=== PATIENT | female | born 1945 | race American Indian/Alaskan Native ===

== ENCOUNTER 2021-12-07 08:35 | Day surgery (SDC) | payer MEDICARE ==
[~2021-12-07 08:35] MED LIST: ceFAZolin/Water 2 GM/20 ML 2 GM/20 ML SYRINGE IV NR
[2021-12-07] MEDS ORDERED: SODIUM CHLORIDE 0.9% 1000 ML 1,000 ML ONE (08:40)
[2021-12-07 09:41] LABS: Hematocrit 27.1 % (30.3-42.9); Hemoglobin 8.5 gm/dl (10.1-14.3); Mean Corpuscular HGB Conc 31 % (30-34); Mean Corpuscular Volume 78 fl (79-97); Platelet Count 184 K/mm3 (140-440); Red Blood Count 3.48 M/mm3 (3.65-5.03); Red Cell Distribution Width 17.1 % (13.2-15.2)
[2021-12-07 09:56] LABS: Calcium 8.9 mg/dL (8.4-10.2)
[2021-12-07] MEDS ORDERED: SODIUM CHLORIDE P/F VIAL 10 ML 10 ML ONE (09:58)
[2021-12-07] MEDS ORDERED: HEPARIN 10,000 UNITS/10 ML VIAL ONE (09:58)
[2021-12-07] MEDS ORDERED: SODIUM CHLORIDE 0.9% 250ML 250 ML ONE (09:59)
[2021-12-07] MEDS ORDERED: BUPIVACAINE/PF (0.5%) 5 MG/1 ML 30 ML VIAL INFILTRATI ONE (09:59)
[2021-12-07] MEDS ORDERED: SODIUM CHLORIDE 0.9% 500 ML 500 ML ONE (09:59)
[2021-12-07] MEDS ORDERED: rifAMPin 600 MG VIAL ONE (09:59)
[2021-12-07] MEDS ORDERED: LIDOCAINE MPF (2%) 20 MG/1 ML VIAL 5 ML ONE (10:02)
[2021-12-07] MEDS ORDERED: propofoL 200 MG/20 ML VIAL IV ONE (10:02)
--- NOTE | 2021-12-07 10:18 | Anesthesia Day of Surgery ---
Anesthesia Day of Surgery - Day of Surgery Patient Examined: Yes Patient H&P Reviewed: Yes Patient is NPO: Yes
--- NOTE | 2021-12-07 10:20 | Anesthesia Consultation ---
Anesthesia Consult and Med Hx Date of service: 12/07/21 - Airway Anesthetic Teeth Evaluation: Poor ROM Head & Neck: Adequate Mental/Hyoid Distance: Adequate Mallampati Class: Class II Intubation Access Assessment: Good - Pulmonary Exam CTA: Yes - Cardiac Exam Anesthetic Concerns: irregular - Pre-Operative Health Status ASA Pre-Surgery Classification: ASA4 Proposed Anesthetic Plan: General - Cardiovascular System Hx Hypertension: Yes Hx Cardia Arrhythmia: Yes (Atrial fib) - Central Nervous System CVA: Yes - Endocrine Hx End Stage Renal Disease: Yes - Hematic Hx Anemia: Yes (IRON DEFICIENCY) - Other Systems Hx Alcohol Use: No Hx Substance Use: No
[2021-12-07] MEDS ORDERED: MIDAZOLAM 2 MG/2 ML INJ ONE (10:29)
[2021-12-07 13:03] VITALS: BP 177/88
== END 2021-12-07 08:36 | disposition home or self-care (01) ==
LOC: OR 08:35
PROVIDERS: ATTEND Surgery Vascular Surgery
DX: I12.0 Hypertensive chronic kidney disease with stage 5 chronic kidney disease or end stage renal disease (principal); N18.6 End stage renal disease; I48.91 Unspecified atrial fibrillation; E78.00 Pure hypercholesterolemia, unspecified; M19.90 Unspecified osteoarthritis, unspecified site; D50.9 Iron deficiency anemia, unspecified; Z53.8 Procedure and treatment not carried out for other reasons; Z98.890 Other specified postprocedural states; Z86.73 Personal history of transient ischemic attack (TIA), and cerebral infarction without residual deficits; Z99.2 Dependence on renal dialysis
CPT/HCPCS: 36415; 80048; 82962; 85027; J1644; J3490; J7030; J7040; J7050; J2250; J2704